=== PATIENT | female | born 1980 ===

== ENCOUNTER 2021-12-28 15:37 | Emergency (ER) | payer SELFPAY ==
[2021-12-28] MEDS ORDERED: KETOROLAC 10 MG TAB PO NR (16:06)
[2021-12-28] MEDS ORDERED: TETANUS,DIPH,PERTUSS(ACELL) VACCINE 0.5 ML SYRINGE IM ONE (16:30)
--- NOTE | 2021-12-28 16:50 | Cat Scan Report ---
CT FACIAL 12/28/2021 HISTORY: injury, pain and swelling. FINDINGS: CT images of the facial bones were obtained. Images are evaluated in the axial, coronal, an d sagittal plane. There is prominent comminuted fractures of the nasal bones, with flattening and displacement from lef t to right. Overlying soft tissue swelling is present. There is some irregularity and fracture of the anterior upper aspect of the nasal septum buckling of the mid nasal septum is well. Small amount of mucosal thickening is present in the left maxillary sinus. Intraorbital structures are intact. IMPRESSION: Prominent comminuted nasal bone fractures. All CT scans at this location are performed using dose reduction to ALARA by means of automated expos ure control. Signer Name: Tommy Carrasco MD Signed: 12/28/2021 4:46 PM Workstation Name: [employer]
[2021-12-28] MEDS ORDERED: KETOROLAC 10 MG TAB PO ONE (19:41)
[2021-12-28] MEDS ORDERED: predniSONE 20 MG TAB PO ONE (19:41)
[2021-12-28] MEDS ORDERED: cephALEXin 500 MG CAP PO ONE (19:43)
[2021-12-28] MEDS ORDERED: oxyCODONE /ACETAMINOPHEN 5-325MG TAB PO ONE (19:46)
--- NOTE | 2021-12-28 19:46 | Emergency Department Report ---
ED ENT HPI - General Chief complaint: Extremity Problem,Nontraumatic Stated complaint: NOSE MAYBE BROKEN Time Seen by Provider: 12/28/21 19:37 Source: patient Mode of arrival: Ambulatory Limitations: No Limitations - History of Present Illness Initial comments: 41-year-old black female with no past medical history resents to the emergency department for evaluation of nose pain. She states that she was playing with her 13-year-old nephew when he accidentally hit her in the face with this tablet. She presents with pain, swelling, and abrasion to nose. She denies any shortness of breath and vision changes. MD complaint: trauma/injury -: Sudden, hour(s) Location: nose Severity: severe Severity scale (0 -10): 9 Quality: aching Consistency: constant Worsens with: movement Associated Symptoms: denies: fever, toothache, pain with swallowing, discharge from ear, rhinorrhea - Related Data Previous Rx's Medication Instructions Recorded Last Taken Type Acetaminophen/Codeine [Tylenol 1 tab PO Q6H PRN #12 tab 12/28/21 Unknown Rx /Codeine # 3 tab] Ketorolac [Toradol] 10 mg PO Q6H PRN #12 tab 12/28/21 Unknown Rx cephALEXin [Keflex] 500 mg PO Q12HR #14 cap 12/28/21 Unknown Rx Allergies Allergy/AdvReac Type Severity Reaction Status Date / Time No Known Allergies Allergy Verified 12/28/21 16:10 ED Dental HPI - General Chief complaint: Extremity Problem,Nontraumatic Stated complaint: NOSE MAYBE BROKEN Time Seen by Provider: 12/28/21 19:37 Source: patient Mode of arrival: Ambulatory Limitations: No Limitations - Related Data Previous Rx's Medication Instructions Recorded Last Taken Type Acetaminophen/Codeine [Tylenol 1 tab PO Q6H PRN #12 tab 12/28/21 Unknown Rx /Codeine # 3 tab] Ketorolac [Toradol] 10 mg PO Q6H PRN #12 tab 12/28/21 Unknown Rx cephALEXin [Keflex] 500 mg PO Q12HR #14 cap 12/28/21 Unknown Rx Allergies Allergy/AdvReac Type Severity Reaction Status Date / Time No Known Allergies Allergy Verified 12/28/21 16:10 ED Review of Systems ROS: Stated complaint: NOSE MAYBE BROKEN Other details as noted in HPI Comment: All other systems reviewed and negative Constitutional: denies: chills, fever Eyes: denies: eye pain, eye discharge, vision change ENT: denies: ear pain, dental pain, congestion Respiratory: denies: shortness of breath Cardiovascular: denies: chest pain, palpitations Gastrointestinal: denies: abdominal pain, nausea, vomiting Genitourinary: denies: urgency, dysuria Musculoskeletal: denies: back pain Skin: denies: rash, lesions Neurological: headache. denies: weakness ED Past Medical Hx - Past Medical History Previous Medical History?: No - Surgical History Past Surgical History?: No - Medications Home Medications: Home Medications Medication Instructions Recorded Confirmed Last Taken Type Acetaminophen/Codeine [Tylenol 1 tab PO Q6H PRN #12 tab 12/28/21 Unknown Rx /Codeine # 3 tab] Ketorolac [Toradol] 10 mg PO Q6H PRN #12 tab 12/28/21 Unknown Rx cephALEXin [Keflex] 500 mg PO Q12HR #14 cap 12/28/21 Unknown Rx ED Physical Exam - General Limitations: No Limitations General appearance: alert, in no apparent distress - Head Head exam: Present: normocephalic. Absent: atraumatic, normal inspection - Expanded Head Exam Expanded Head exam: Present: abrasion 1 - Tenderness swelling and abrasion noted to area - Eye Eye exam: Present: normal appearance, periorbital tenderness (Left eye only). Absent: conjunctival injection, periorbital swelling - ENT ENT exam: Present: normal orophraynx, mucous membranes moist, TM's normal bilaterally, normal external ear exam. Absent: normal exam (Minimal left nasal mucosal edema noted) - Expanded ENT Exam Expanded Teeth exam: Present: normal inspection Throat exam: Positive: normal inspection - Neck Neck exam: Present: normal inspection, full ROM. Absent: tenderness, lymphadenopathy - Respiratory Respiratory exam: Present: normal lung sounds bilaterally. Absent: respiratory distress, wheezes, rales, rhonchi, stridor, chest wall tenderness - Cardiovascular Cardiovascular Exam: Present: tachycardia. Absent: normal heart sounds - GI/Abdominal GI/Abdominal exam: Present: soft, normal bowel sounds. Absent: distended, tenderness, guarding, rebound, rigid - Extremities Exam Extremities exam: Present: normal inspection - Back Exam Back exam: Present: normal inspection - Neurological Exam Neurological exam: Present: alert, oriented X3, CN II-XII intact, normal gait, reflexes normal. Absent: motor sensory deficit - Psychiatric Psychiatric exam: Present: normal affect, normal mood - Skin Skin exam: Present: warm, dry, normal color ED Course Vital Signs 12/28/21 12/28/21 16:04 20:12 Temperature 98.9 F Pulse Rate 105 H 89 Respiratory 16 17 Rate Blood Pressure 129/85 132/87 [Right] O2 Sat by Pulse 98 97 Oximetry ED Medical Decision Making - Radiology Data Radiology results: report reviewed, image reviewed CT facial bones without contrast: FINDINGS: CT images of the facial bones were obtained. Images are evaluated in the axial, coronal, and sagittal plane. There is prominent comminuted fractures of the nasal bones, with flattening and displacement from left to right. Overlying soft tissue swelling is present. There is some irregularity and fracture of the anterior upper aspect of the nasal septum buckling of the mid nasal septum is well. Small amount of mucosal thickening is present in the left maxillary sinus. Intraorbital structures are intact. IMPRESSION: Prominent comminuted nasal bone fractures. - Medical Decision Making 41-year-old black female with no past medical history resents to the emergency department for evaluation of nose pain. She states that she was playing with her 13-year-old nephew when he accidentally hit her in the face with this tablet. She presents with pain, swelling, and abrasion to nose. She denies any shortness of breath and vision changes. CT facial bones positive for nasal bone fracture. Patient be discharged home with Keflex, Toradol, and Tylenol 3 to use as directed. She is advised to follow-up with oral maxillofacial surgeon for further evaluation and management. She is advised to return to the emergency department as needed. She verbalizes understanding of and agreement with plan of care. Critical care attestation.: If time is entered above; I have spent that time in minutes in the direct care of this critically ill patient, excluding procedure time. ED Disposition Clinical Impression: Nasal bone fracture Disposition: HOME / SELF CARE / HOMELESS Is pt being admited?: No Does the pt Need Aspirin: No Condition: Stable Instructions: Nasal Fracture, [id number] Additional Instructions: Take medications as prescribed. Follow-up with ear nose and throat doctor or your primary care provider for further evaluation and management. Return to the emergency department as needed. Prescriptions: cephALEXin [Keflex] 500 mg PO Q12HR #14 cap Ketorolac [Toradol] 10 mg PO Q6H PRN #12 tab PRN Reason: Pain Acetaminophen/Codeine [Tylenol /Codeine # 3 tab] 1 tab PO Q6H PRN #12 tab PRN Reason: Pain , Severe (7-10) Referrals: WAYNE MON MD [Referring] - 3-5 Days AYAKA VERGARA DDS [Referring] - 3-5 Days Forms: Work/School Release Form(ED) Time of Disposition: 19:48
[2021-12-28 20:14] VITALS: BP 132/87
== END 2021-12-28 20:12 | disposition home or self-care (01) ==
LOC: ED 15:37
DX: S02.2XXA Fracture of nasal bones, initial encounter for closed fracture (principal); X58.XXXA Exposure to other specified factors, initial encounter; Y93.89 Activity, other specified; Y92.89 Other specified places as the place of occurrence of the external cause; Y99.8 Other external cause status
CPT/HCPCS: 70486; 90471; 90715; 99283